=== PATIENT | female | born 1960 | race Caucasian/White ===

== ENCOUNTER 2017-05-29 07:11 | Inpatient (IN) | payer OTHER ==
[~2017-05-29 07:11] MED LIST: PROPOFOL 200 MG INJ
[2017-05-29] MEDS ORDERED: LACTATED RINGER'S 1,000 ML IV* (08:30)
[2017-05-29] MEDS ORDERED: CEFAZOLIN 2 GM/50 ML (PMX) 50 ML IVPB (08:30)
[2017-05-29] MEDS ORDERED: GELATIN SIZE 100 SPONGE (10:30)
[2017-05-29] MEDS ORDERED: BUPIVACAINE 0.25% (MPF) 30 ML INJ (10:30)
[2017-05-29] MEDS ORDERED: MIDAZOLAM 1 MG/ML 2 ML INJ (10:40)
[2017-05-29] MEDS ORDERED: PROPOFOL 20 ML (10:40)
[2017-05-29] MEDS ORDERED: ROCURONIUM 50 MG INJ ×3 (10:40→14:37)
[2017-05-29] MEDS ORDERED: LIDOCAINE 2% (SDV) 5 ML INJ (10:40)
[2017-05-29] MEDS ORDERED: SUCCINYLCHOLINE CHLORIDE 100 MG/5 ML SYG IV (10:40)
[2017-05-29] MEDS ORDERED: DEXAMETHASONE 4 MG/ML 1 ML INJ ×3 (11:01→16:47)
[2017-05-29] MEDS ORDERED: ONDANSETRON 4 MG INJ (11:01)
[2017-05-29] MEDS ORDERED: FAMOTIDINE 20 MG INJ (11:01)
[2017-05-29] MEDS ORDERED: CEFAZOLIN 1 GM INJ (11:15)
[2017-05-29] MEDS ORDERED: EPHEDrine SULFATE 50 MG/5 ML SYG (11:35)
[2017-05-29] MEDS: LIDOCAINE 1%/EPI 30 ML INJ (11:57)
[2017-05-29] MEDS: POLYMYXIN/BACITRACIN 1L IRRIG (11:57)
[2017-05-29] MEDS: THROMBIN 5000 UNIT VIAL (13:29)
[2017-05-29] MEDS ORDERED: HYDROmorphONE 2 MG/ML SYG (14:21)
[2017-05-29] MEDS ORDERED: GLYCOPYRROLATE 0.4 MG INJ (16:59)
[2017-05-29] MEDS ORDERED: NEOSTIGMINE 3 MG/3 ML SYRINGE (16:59)
[2017-05-29] MEDS ORDERED: hydrALAzine 20 MG INJ IV ×2 (17:00→21:30)
[2017-05-29] MEDS ORDERED: PROCHLORPERAZINE 10 MG INJ IV (17:00)
[2017-05-29] MEDS ORDERED: MEPERIDINE 25 MG INJ IV (17:00)
[2017-05-29] MEDS ORDERED: DIPHENHYDRAMINE 50 MG INJ IV (17:00)
[2017-05-29] MEDS ORDERED: FENTAnyl 50 MCG/ML VIAL IV ×3 (17:00)
[2017-05-29] MEDS ORDERED: LABETALOL HCL 20MG INJ IV (17:00)
[2017-05-29] MEDS ORDERED: HYDROmorphONE (0.2 MG/ML) 10ML SYG IV ×3 (17:00)
[2017-05-29] MEDS ORDERED: NACL 0.9% 3 ML SYG IV (17:30)
[2017-05-29] MEDS ORDERED: HYDROCODONE/APAP (5/325) TAB PO (17:30)
[2017-05-29] MEDS ORDERED: ONDANSETRON 4 MG INJ IV (17:30)
[2017-05-29] MEDS ORDERED: PROCHLORPERAZINE 10 MG TAB PO (17:30)
[2017-05-29] MEDS ORDERED: NALOXONE (0.4 MG/ML) INJ IV (17:30)
[2017-05-29] MEDS: HYDROmorphONE 0.2 MG/ML PCA IV (17:53)
[2017-05-29] MEDS: CEFAZOLIN 1 GM/50 ML (PMX) 50 ML IVPB ×2 (18:05→23:55)
[2017-05-29] MEDS: ONDANSETRON 4 MG INJ IV (20:15)
[2017-05-29] MEDS: LORAZEPAM 2 MG INJ IV (21:51)
[2017-05-30] MEDS: ONDANSETRON 4 MG INJ IV ×2 (02:05→09:13)
[2017-05-30] MEDS: CEFAZOLIN 1 GM/50 ML (PMX) 50 ML IVPB ×2 (05:14→13:14)
[2017-05-30 05:19] LABS: HEMATOCRIT 39.5 % (37.0-47.0); HEMOGLOBIN 13.7 g/dl (12.0-16.0)
[2017-05-30 05:56] LABS: ANION GAP 18 (8-16); BLOOD UREA NITROGEN 11 mg/dl (7-20); CALCIUM 9.2 mg/dl (8.4-10.2); CARBON DIOXIDE 26 mmol/L (21-31); CHLORIDE 100 mmol/L (97-110); CREATININE 0.64 mg/dl (0.44-1.00); GLUCOSE 131 mg/dl (70-220); POTASSIUM 4.1 mmol/L (3.5-5.1); SODIUM 140 mmol/L (135-144)
[2017-05-30] MEDS ORDERED: morphine 2 MG INJ IV (07:30)
[2017-05-30] MEDS: HYDROCODONE/APAP (5/325) TAB PO ×2 (09:01→23:40)
[2017-05-30] MEDS: PANTOPRAZOLE (EC) 40 MG TAB PO (09:01)
[2017-05-30] MEDS: LISINOPRIL 10 MG TAB PO (09:02)
[2017-05-30] MEDS: ACETAMINOPHEN 325 MG TAB PO (20:10)
[2017-05-31 05:35] LABS: ANION GAP 16 (8-16); BLOOD UREA NITROGEN 19 mg/dl (7-20); CALCIUM 9.1 mg/dl (8.4-10.2); CARBON DIOXIDE 32 mmol/L (21-31); CHLORIDE 103 mmol/L (97-110); CREATININE 0.83 mg/dl (0.44-1.00); GLUCOSE 105 mg/dl (70-220); MAGNESIUM 2.4 mg/dl (1.7-2.5); PHOSPHORUS 3.7 mg/dl (2.5-4.9); POTASSIUM 3.8 mmol/L (3.5-5.1); SODIUM 147 mmol/L (135-144)
[2017-05-31 05:37] LABS: ALANINE AMINOTRANSFERASE 112 IU/L (13-69); ALBUMIN 4.4 g/dl (3.3-4.9); ALBUMIN/GLOBULIN RATIO 1.29; ALKALINE PHOSPHATASE 57 IU/L (42-121); ANION GAP 15 (8-16); ASPARTATE AMINO TRANSFERASE 71 IU/L (15-46); BILIRUBIN,INDIRECT 0.4 mg/dl (0-1.1); BILIRUBIN,TOTAL 0.4 mg/dl (0.2-1.3); BLOOD UREA NITROGEN 19 mg/dl (7-20); CALCIUM 9.1 mg/dl (8.4-10.2); CARBON DIOXIDE 33 mmol/L (21-31); CHLORIDE 103 mmol/L (97-110); CREATININE 0.87 mg/dl (0.44-1.00); GLUCOSE 109 mg/dl (70-220); POTASSIUM 3.5 mmol/L (3.5-5.1); SODIUM 147 mmol/L (135-144); TOTAL PROTEIN 7.8 g/dl (6.1-8.1)
[2017-05-31] MEDS: PANTOPRAZOLE (EC) 40 MG TAB PO (05:46)
[2017-05-31] MEDS: HYDROCODONE/APAP (5/325) TAB PO ×5 (05:47→22:03)
[2017-05-31] MEDS: LISINOPRIL 10 MG TAB PO (08:23)
[2017-05-31] MEDS: POTASSIUM CHLORIDE (SR) 10 MEQ TAB PO (09:25)
[2017-05-31] MEDS ORDERED: NA PHOSPHATE/BIPHOS 133 ML ENEMA PR (22:00)
[2017-05-31] MEDS: DOCUSATE SODIUM 100 MG CAP PO (22:03)
[2017-06-01] MEDS: HYDROCODONE/APAP (5/325) TAB PO ×2 (02:01→05:58)
[2017-06-01 04:47] LABS: ADD MAN DIFF? NO
[2017-06-01 04:51] LABS: BASOPHILS % 0.2 % (0.0-2.0); EOSINOPHILS % 0.5 % (0.0-7.0); HEMATOCRIT 38.9 % (37.0-47.0); HEMOGLOBIN 13.2 g/dl (12.0-16.0); LYMPHOCYTES # 3.8 10^3/ul (0.8-2.9); LYMPHOCYTES % 46.8 % (15.0-51.0); MEAN CORPUSCULAR HEMOGLOBIN 32.7 pg (29.0-33.0); MEAN CORPUSCULAR HGB CONC 33.9 g/dl (32.0-37.0); MEAN CORPUSCULAR VOLUME 96.3 fl (82.0-101.0); MEAN PLATELET VOLUME 9.9 fl (7.4-10.4); MONOCYTE # 0.6 10^3/ul (0.3-0.9); MONOCYTES % 7.5 % (0.0-11.0); NEUTROPHIL # 3.7 10^3/ul (1.6-7.5); NEUTROPHILS % 44.8 % (39.0-77.0); PLATELET COUNT 232 10^3/UL (140-415); RED BLOOD COUNT 4.04 10^6/ul (4.20-5.40); RED CELL DISTRIBUTION WIDTH 13.2 % (11.5-14.5)
[2017-06-01 04:51] LABS: WHITE BLOOD COUNT 8.2 10^3/ul (4.8-10.8)
[2017-06-01 05:12] LABS: ALANINE AMINOTRANSFERASE 107 IU/L (13-69); ALBUMIN 3.9 g/dl (3.3-4.9); ALBUMIN/GLOBULIN RATIO 1.25; ALKALINE PHOSPHATASE 53 IU/L (42-121); AMYLASE 56 U/L (11-123); ANION GAP 14 (8-16); ASPARTATE AMINO TRANSFERASE 69 IU/L (15-46); BILIRUBIN,INDIRECT 0.3 mg/dl (0-1.1); BILIRUBIN,TOTAL 0.3 mg/dl (0.2-1.3); BLOOD UREA NITROGEN 18 mg/dl (7-20); CALCIUM 8.9 mg/dl (8.4-10.2); CARBON DIOXIDE 30 mmol/L (21-31); CHLORIDE 103 mmol/L (97-110); CREATININE 0.76 mg/dl (0.44-1.00); GLUCOSE 104 mg/dl (70-220); POTASSIUM 4.2 mmol/L (3.5-5.1); SODIUM 143 mmol/L (135-144)
[2017-06-01] MEDS: PANTOPRAZOLE (EC) 40 MG TAB PO (05:58)
[2017-06-01] MEDS: LISINOPRIL 10 MG TAB PO (08:19)
[2017-06-01] MEDS: ONDANSETRON 4 MG INJ IV (08:19)
[2017-06-01] MEDS: DOCUSATE SODIUM 100 MG CAP PO (08:19)
[2017-06-01] MEDS ORDERED: MAGNESIUM HYDROXIDE 30ML CUP PO ×2 (09:00)
[2017-06-01] MEDS ORDERED: VITAMIN A & D 5 GM OINT PACKET TOP (12:14)
== END 2017-06-01 12:30 | disposition home or self-care (01) | DRG 473 ==
LOC: REC 07:11 → MS1 20:50
PROC: 0RG20K0 Fusion of 2 or more Cervical Vertebral Joints with Nonautologous Tissue Substitute, Anterior Approach, Anterior Column, Open Approach (ICD-10-PCS; principal; 2017-05-29 10:00)
PROC: 0RT30ZZ Resection of Cervical Vertebral Disc, Open Approach (ICD-10-PCS; 2017-05-29 10:00)
DX: M50.121 Cervical disc disorder at C4-C5 level with radiculopathy (principal); R13.10 Dysphagia, unspecified; I10 Essential (primary) hypertension; M48.02 Spinal stenosis, cervical region; F17.200 Nicotine dependence, unspecified, uncomplicated; R20.0 Anesthesia of skin; R20.2 Paresthesia of skin; R11.2 Nausea with vomiting, unspecified; Z91.81 History of falling
CPT/HCPCS: 72040; 72052; 80048; 80053; 82150; 83735; 84100; 85014; 85018; 85025; 86850; 86900; 86901; 86920; 97116; 97161; 97530